=== PATIENT | male | born 1985 | race Caucasian/White ===

== ENCOUNTER 2019-01-14 19:22 | Emergency (ER) | payer OTHER ==
[2019-01-14 19:48] VITALS: BP 115/74; PULSE 74; TEMP 98.9; BMI 22.3
[2019-01-14] MEDS ORDERED: KETOROLAC TROMETHAMINE 60 MG/2 ML VIAL IM ONE (20:32)
[2019-01-14] MEDS ORDERED: KETOROLAC TROMETHAMINE 60 MG/2 ML VIAL ONE (20:34)
--- NOTE | 2019-01-14 20:49 | PDOC ---
History of Present Illness - General Chief Complaint: Toothache Stated Complaint: TOOTHACHE Time Seen by Provider: 01/14/19 20:06 History Source: Patient Exam Limitations: No Limitations Past History - Past Medical History Allergies/Adverse Reactions: Allergies Allergy/AdvReac Type Severity Reaction Status Date / Time No Known Allergies Allergy Verified 01/14/19 19:43 COPD: No - Surgical History Abdominal Surgery: (HERNIA REPAIR) - Suicide/Smoking/Psychosocial Hx Smoking History: Never smoked Hx Alcohol Use: Yes (SOCIAL) Drug/Substance Use Hx: No Substance Use Type: None *Physical Exam - Vital Signs Last Vital Signs Temp Pulse Resp BP Pulse Ox 98.9 F 74 18 115/74 99 01/14/19 19:43 01/14/19 19:43 01/14/19 19:43 01/14/19 19:43 01/14/19 19:43 - Physical Exam General Appearance: No: Apparent Distress HEENT: positive: Pharynx Normal, Other (+L facial swelling, +gum swelling along L upper gums, no erythema) Integumentary: positive: Normal Color Neurologic: positive: Alert ED Treatment Course - Medications Given in the ED: ED Medications Discontinued Medications Generic Name Dose Route Start Last Admin Trade Name Freq PRN Reason Stop Dose Admin Ketorolac Tromethamine 60 mg 01/14/19 20:32 01/14/19 20:37 Toradol Injection - IM 01/14/19 20:33 60 mg ONCE ONE Administration Medical Decision Making - Medical Decision Making 33 y/o M with no sig pmh presents with L upper tooth infection x 3 days. Went to dental clinic 3 days ago and was prescribed naproxen and clindamycin. However , states swelling has not improved. denies fever, throat pain, sob, cp, n/v, other complaints Dental abscess Given Toradol Advised to f/u with dental for drainage 01/14/19 20:46 *DC/Admit/Observation/Transfer Diagnosis at time of Disposition: Dental abscess - Discharge Dispostion Disposition: HOME Condition at time of disposition: Stable Decision to Admit order: No - Referrals - Patient Instructions Printed Discharge Instructions: DI for Tooth Abscess Additional Instructions: Thank you for choosing [facility]. It was a pleasure taking care of you. Continue the antibiotics as prescribed Follow-up in dental clinic for drainage of abscess Return to the Emergency Department if your symptoms worsen or persist or have other concerning symptoms. - Post Discharge Activity
== END 2019-01-14 21:03 | disposition home or self-care (01) ==
LOC: JERFT 19:22
PROC: 3E0233Z Introduction of Anti-inflammatory into Muscle, Percutaneous Approach (ICD-10-PCS; principal; 2019-01-14)
DX: K04.7 Periapical abscess without sinus (principal)
CPT/HCPCS: 96372; 99281-25